=== PATIENT | female | born 1985 | race African-American/Black ===

== ENCOUNTER 2017-04-24 22:28 | Emergency (ER) | payer BC ==
[~2017-04-24] VITALS: Ht 165.1 cm; Wt 70.0 kg
[~2017-04-24 22:28] MED LIST: ATARAX10 MG PO; ATENOLOL100 M1 PO; ATENOLOL100 MG PO; BACTRIM,SEPT1 TABLET PO; BUSPAR10 MG PO; CITALOPRAM HBR20 M1 PO; COLACE100 MG PO; DOXYCYCLINE HY100 M3 PO; KEFLEX500 MG PO; KLONOPIN0.5 M1 PO; KLONOPIN1 MG PO; LEXAPRO20 MG PO; MOTRIN600 MG PO; NAPROSYN500 MG PO; NORCO 7.5/321 TABLET PO; NORTREL1 EAC1 PO; OPANA10 MG PO; OXYCODONE5 MG PO; PAXIL20 MG PO; PERCOCET 5-3251 EACH PO; PERCOCET 7.51 TABLET PO; PROMETHAZINE HC25 M1 PO; PROZAC10 MG PO; ROBITUSSIN100 MG/5 M PO; XANAX2 MG PO; ZANTAC150 MG PO
[2017-04-25 00:53] VITALS: BP 122/79
== END 2017-04-25 00:54 | disposition home or self-care (01) ==
LOC: EME 22:28
DX: T19.2XXA Foreign body in vulva and vagina, initial encounter (principal); Y93.89 Activity, other specified; K21.9 Gastro-esophageal reflux disease without esophagitis; F41.9 Anxiety disorder, unspecified; Z88.1 Allergy status to other antibiotic agents; Z88.8 Allergy status to other drugs, medicaments and biological substances; Z91.041 Radiographic dye allergy status
CPT/HCPCS: 72170; 99281; 99284